=== PATIENT | male | born 1945 | race Caucasian/White ===

== ENCOUNTER 2020-08-11 10:20 | Outpatient (RCR) | payer MEDICARE, OTHER, SELFPAY ==
[2016-06-09 09:13] VITALS: BMI 32.7
[2020-08-11] MEDS: COVID-19 VACC, MRNA(PFIZER)/PF 30 MCG/0.3 ML SYRINGE IM (09:00)
[2020-09-01] MEDS: COVID-19 VACC, MRNA(PFIZER)/PF 30 MCG/0.3 ML SYRINGE IM (08:56)
== END 2020-11-10 23:59 ==
LOC: IMMUN 10:20
PROVIDERS: PCP Family Medicine; Referring Provider Family Medicine; Visit Provider Family Medicine
DX: Z23 Encounter for immunization (principal)
CPT/HCPCS: 0001A; 0002A; 91300

== ENCOUNTER 2021-10-09 04:41 | Emergency (ER) | payer MEDICARE, OTHER, SELFPAY ==
[2021-10-09 04:43] VITALS: BP 162/69; PULSE 118; RESP 24; TEMP 36.6; O2SAT 97; BMI 31.3
--- NOTE | 2021-10-09 04:52 | CT_ITS ---
STUDY: CTA HEAD AND NECK WITH CONTRAST REASON FOR EXAM: Male, 76 years old. Right sided numbness and tingling. Diabetes and hypertension. RADIATION DOSAGE (If Supplied By Facility): CTDIvol = ( 25.48 ) mGy, DLP = ( 1588.84 ) mGycm TECHNIQUE: Precontrast head CT was performed. CT angiography was performed with a multi-detector CT scanner. Data acquisition was obtained from the skull base through the vertex following intravenous administration of IV 100mL Isovue-370. with MIP reconstructed images. Individualized dose optimization techniques were used for this CT. COMPARISON: CT brain without contrast 06/09/2016. FINDINGS: Precontrast head CT: Small to moderate in size infarcts in the right superior frontal gyrus and middle frontal gyrus involving the cortex and underlying white matter. These are new compared to the previous CT but otherwise difficult to age. No evidence of hemorrhage. No hydrocephalus. ASPECTS stroke score 8 out of 10 with loss of 2 points due to the right-sided infarcts. Cervical ICA narrowing is measured per NASCET criteria (% ICA stenosis = (1 - [narrowest ICA diameter/diameter normal distal cervical ICA]) x 100. CTA NECK: Aortic arch: Left-sided 3 vessel aortic arch with no significant narrowing of the great vessel origins or subclavian arteries. Right carotids: Right CCA: No significant narrowing or dissection. Right ICA: No significant narrowing or dissection. Previous right CEA. Right ECA: No significant narrowing or dissection. Left carotids Left CCA:No significant narrowing or dissection. Left ICA: Moderate, 50%, narrowing of the origin secondary to calcific plaque. Otherwise no significant narrowing in the neck. Left ECA: No significant narrowing or dissection. Vertebrals: Codominant vertebral arteries with no significant narrowing and no dissection. CTA HEAD: Intracranial carotids:Normal course and caliber. MCAs:Mild atherosclerotic irregularity. No high-grade narrowing. ACAs:Mild atherosclerotic irregularity. No high-grade narrowing. Basilar:Normal caliber. No aneurysm. e mail system administrator:Multifocal mild atherosclerotic irregularity. No high-grade narrowing. On the left, the P1 segment is dominant. On the right, a patent posterior communicating artery is larger in caliber than the P1 segment. Patent bilateral posterior and anterior inferior and superior cerebellar arteries are identified. No evidence of AVM or aneurysm. No intracranial DVT. Nonvascular structures: Multinodular thyroid. Evidence of diffuse idiopathic skeletal hyperostosis partially visible with bridging anterior osteophytes extending from C4 into the partially visible upper thoracic spine. Surgical clips adjacent to the right CCA bifurcation. CT/CTA Head AND Neck W/ Contrast IMPRESSION: No large vessel occlusion or high-grade arterial narrowing. Moderate narrowing of the left ICA origin. Previous right carotid endarterectomy. Small to moderate in size infarcts in the right frontal and parietal lobes are new compared to 2017 but otherwise difficult to age; MRI brain without contrast would more definitively evaluate. Electronically Signed: Luís Sanderson MD at 6:24 EDT Reading Location ID and State: [facility] / [place] Tel , Service support ,
--- NOTE | 2021-10-09 04:53 | EKG12_ITS ---
Test Reason : DYSRYTHMIA Blood Pressure : / mmHG Vent. Rate : 101 BPM Atrial Rate : 101 BPM P-R Int : 162 ms QRS Dur : 124 ms QT Int : 362 ms P-R-T Axes : 082 -51 086 degrees QTc Int : 469 ms Sinus tachycardia with occasional Premature ventricular complexes Left anterior fascicular block Left ventricular hypertrophy with QRS widening and repolarization abnormality Abnormal ECG Confirmed by GAMALIEL BLOCK, NAHOMI ([id number]), associate entertainment editor OLIVIA CHAVARRIA ([id number]) on 10/11/2021 1:27:49 PM Referred By: GREGORY Confirmed By:NAHOMI ALSTON MD
--- NOTE | 2021-10-09 04:54 | EDS_ITS ---
HPI History of Present Illness Chief Complaint: Numb/Ting Informant: patient Onset/Context/Timing Onset: Today Current Severity: Gone Maximum Severity: Moderate Narrative Narrative: Patient presents due to numbness and tingling of his right hand. Patient states around 315 he noted some tingling in the palm of his right hand. He had just woken from sleep. This progressed to numbness of his right hand. He states he never lost function of his hand and could move all digits. Symptoms have since subsided. He states he was told by his doctor that he may have had a stroke in the past and this concerned him with today's symptoms so he came in for evaluation. He denies chest pain or palpitations. No recent illness. [facility] Medical History (Updated 10/09/21 @ 06:[address] Malou Wiggins MD) BPH (benign prostatic hyperplasia) Carotid stenosis Diabetes High cholesterol Hypertension Left inguinal hernia Thyroid nodule Home Medications amlodipine 10 mg PO DAILY 07/11/14 [History Last Taken Unknown] tamsulosin 0.4 mg PO DAILY 07/11/14 [History Last Taken Unknown] losartan 50 mg PO DAILY 07/04/15 [History Last Taken Unknown] metformin 500 mg PO BID 07/04/15 [History Last Taken Unknown] betamethasone, augmented 1 applic TRANSDERMAL BID 06/09/16 [History Last Taken Unknown] atorvastatin 20 mg PO DAILY 10/09/21 [History Last Taken Unknown] Allergy/AdvReac Type Severity Reaction Status Date / Time No Known Allergies Allergy Verified 06/09/16 09:16 Surgical History (Updated 10/09/21 @ 04:[address] Malou Wiggins MD) H/O carotid endarterectomy Social History Smoking Status: Never smoker ROS ROS ED Constitutional Constitutional ED: Denies chills or fever(s) Eyes Eyes: Denies change in vision ENT ENT ED: Denies sore throat Cardiovascular Cardiovascular: Denies chest pain Respiratory/Chest Respiratory/Chest: Denies cough or dyspnea Gastrointestinal Gastrointestinal: Denies abdominal pain, nausea or vomiting Genitourinary Genitourinary ED: Denies dysuria Musculoskeletal Musculoskeletal: Denies back pain or neck pain Integumentary Denies rash Neurologic Neurologic: Reports paresthesias; Denies headache(s) or weakness Allergic/Immunologic Allergic/Immunologic ED: Denies urticaria EXAM Physical Exam Const Vital Signs: 10/09/21 04:43 10/09/21 06:20 Temperature 97.8 F Temperature Source Oral Pulse Rate 118 H 95 Respiratory Rate 24 H 22 H Blood Pressure 162/69 H 147/76 H Blood Pressure Mean 100 99 Pulse Ox 97 94 Oxygen Delivery Method Room Air Room Air Positive well nourished and well developed General Appearance ED: well developed HEENT Reports moist mucous membranes Eyes PERRL and EOMs intact bilaterally Neck supple Chest Wall inspection of chest normal and palpation of chest normal Resp normal respiratory effort and clear to auscultation bilaterally Cardio Rate: tachycardic GI normal to inspection, nondistended, normoactive bowel sounds and non-tender Palpation: soft Extremity normal to inspection Neuro oriented x3 and no sensory deficits noted Neuro Narrative: NIH equals 0 at time of my exam. Sensorium / Orientation: alert Motor Exam: strength 5/5 throughout Psych mental status grossly normal Skin no rashes or lesions noted MDM MDM MDM Narrative Medical decision making narrative: Because of the patient's history of probable stroke and carotid stenosis, lab work and CTA of the head and neck was obtained. Lab Data Attestation: I reviewed the patient's lab results. Labs: Laboratory Results - last 24 hr 10/09/21 10/09/21 04:52 04:52 WBC 4.6 RBC 3.83 L Hgb 11.8 L Hct 35.4 L MCV 92.4 MCH 30.8 MCHC 33.3 RDW Std Deviation 41.9 RDW Coeff of Abhijeet 12.4 Plt Count 161 MPV 10.3 Immature Gran % (Auto) 0.200 Neut % (Auto) 58.0 Lymph % (Auto) 28.9 [place] % (Auto) 11.2 H Eos % (Auto) 1.3 Baso % (Auto) 0.4 Absolute Neuts (auto) 2.7 Absolute Lymphs (auto) 1.34 Nucleated RBC % 0 Sodium 140 Potassium 3.8 Chloride 105 Carbon Dioxide 29.0 Anion Gap 6 BUN 22 H Creatinine 1.23 Estim Creat Clear Calc 47.55 Est GFR (MDRD) Af Amer 74 Est GFR (MDRD) Non-Af 61 BUN/Creatinine Ratio 17.9 Glucose 123 H Calcium 8.5 Radiography Diagnostic Testing: Clinical Impression(s) from Imaging Studies Head/Neck CTA 10/09/21 04:52 IMPRESSION: No large vessel occlusion or high-grade arterial narrowing. Moderate narrowing of the left ICA origin. Previous right carotid endarterectomy. Small to moderate in size infarcts in the right frontal and parietal lobes are new compared to 2017 but otherwise difficult to age; MRI brain without contrast would more definitively evaluate. Electronically Signed: Luís Sanderson MD at 6:24 EDT Reading Location ID and State: [facility] / [place] Tel , Service support , EKG Initial EKG: Attestation: I personally reviewed and interpreted this EKG as follows: Interpretation: Sinus Tachycardia (Sinus tach at 101 with occasional PVCs. No acute ischemia.) Treatment and Re-Evaluation Narrative: Patient has had no further neurologic symptoms in the emergency room. My suspicion is that he had a neuropraxia from oddly while he was sleeping. He never had weakness. Lab work is unremarkable. EKG reveals no acute ischemia. CTA is read as moderate narrowing of the left ICA origin. Small to moderate size infarct in the right frontal and parietal lobes are new when compared to 2017. I was able to look in clinic sink and find an MRI the patient had in 2019 which revealed infarcts in the same distribution. At this time I do not feel he has any acute infarct. Patient is reassured with these findings and will follow up with his primary care physician. Return instructions provided. Discharge Plan Triage Chief Complaint: Numb/Ting ED Provider: Malou Wiggins Dx/Rx/DC Orders Clinical Impression: Paresthesia Instructions: ED Paraesthesias Prescriptions: No Action amlodipine 5 MG tablet 10 mg PO DAILY RF: 0 tamsulosin 0.4 MG capsule 0.4 mg PO DAILY RF: 0 metformin 500 MG tablet 500 mg PO BID RF: 0 losartan 25 MG tablet 50 mg PO DAILY RF: 0 betamethasone, augmented 50 GM cream 1 applic transdermal BID RF: 0 atorvastatin 20 mg Tablet 20 mg PO DAILY RF: 0 Primary Care Provider: Yaw Herndon Referrals: Yaw Herndon MD [Primary Care Provider] - As Needed Disposition Disposition: Home, Self Care
[2021-10-09 05:08] LABS: Absolute Lymphocyte Count 1.34 X10^3/uL (0.83-4.51); Absolute Neutrophil Count 2.7 X10^3/uL (2.0-7.7); Basophil# 0.02 X10^3/uL; Basophil% 0.4 % (0-1); Eosinophil# 0.06 X10^3/uL; Eosinophils% 1.3 % (0-5); Hematocrit 35.4 % (40-54); Hemoglobin 11.8 g/dL (13.0-16.5); Lymphocyte # 1.34 X10^3/ul (0.83-4.51); Lymphocyte % 28.9 % (19-41); Mean Corp Hgb Conc 33.3 g/dL (32-36); Mean Corpuscular Hgb 30.8 pg (27.0-32.0); Mean Corpuscular Volume 92.4 fL (80-94); Mean Platelet Vol. 10.3 fl (6.2-12.0); Monocyte# 0.52 X10^3/uL; Monocyte% 11.2 % (0-10); NRBC Flagged by Analyzer 0 % (0-5); Neutrophil # 2.69 X10^3/uL (2.7-7.7); Platelet Count 161 K/mm3 (150-450); RBC Distribution Width CV 12.4 % (11.6-14.6); RBC Distribution Width SD 41.9 fl (35.1-43.9); Red Blood Count 3.83 M/mm3 (4.6-6.2); White Blood Count 4.6 K/mm3 (4.4-11.0)
[2021-10-09 05:20] LABS: Anion Gap 6 (5-15); BUN 22 mg/dL (7-18); BUN/Creat Ratio 17.9 RATIO (10-20); Calcium,Total 8.5 mg/dL (8.5-10.1); Chloride 105 mmol/L (98-107); Creatinine, Serum 1.23 mg/dL (0.70-1.30); EST Glomerular Filtration Rate 61 mL/min (>60); Est Glom Filt Rate - Afr Amer 74 mL/min (>60); Estimated Creatinine Clearance 47.55 ml/min; Glucose 123 mg/dL (74-106); Potassium 3.8 mmol/L (3.5-5.1); Sodium Level 140 mmol/L (136-145)
[2021-10-09 06:20] VITALS: BP 147/76; PULSE 95; RESP 22; O2SAT 94
[2021-10-09 06:35] VITALS: BP 146/94; PULSE 94; RESP 18; O2SAT 94
== END 2021-10-09 06:36 | disposition home or self-care (01) ==
PROVIDERS: Emergency Provider Emergency Medicine; PCP Family Medicine; Visit Provider Emergency Medicine
DX: R20.2 Paresthesia of skin (principal); E11.9 Type 2 diabetes mellitus without complications; I10 Essential (primary) hypertension; E78.00 Pure hypercholesterolemia, unspecified; N40.0 Benign prostatic hyperplasia without lower urinary tract symptoms
CPT/HCPCS: 70496; 70498; 80048; 85025; 93005; 99285; Q9967; A4216